=== PATIENT | male | born 1995 | race Caucasian/White ===

== ENCOUNTER 2016-05-02 18:42 | Emergency (ER) | payer OTHER ==
[2016-05-02 18:52] VITALS: RESP 16; TEMP 98.1
--- NOTE | 2016-05-02 20:05 | EDPHY ---
H & P Stated Complaint: L arm injury skiing;abrasion and contusion noted L proximal forearm HPI/ROS: CHIEF COMPLAINT: skiing injury, left forearm injury HISTORY OF PRESENT ILLNESS: skiing this afternoon when he reports coming around a corner too quickly, and striking a tree. Said he instinctively pulled his left arm up instructed treated 1st with the forearm. No head or neck injury. No loss of conscious. No chest or back pain. No injury to the right arm. No injury to the legs. The pain is mild to moderate. It is worse with palpation and weight-bearing. Superficial abrasion but no laceration. He retains full range of motion about the arm. Pain does improve with rest. No other associated complaints or modifying factors. PRIOR ORTHO INJURIES:None ESTABLISHED ORTHOPEDIST: none REVIEW OF SYSTEMS: Ten systems reviewed and are negative unless otherwise noted in the HPI EXAMINATION General Appearance: Alert, no distress Head: normocephalic, atraumatic Eyes: Pupils equal and round, no conjunctival pallor or injection ENT, Mouth: Mucous membranes moist Neck: Normal inspection Respiratory: No dyspnea or retractions. No distress Cardiovascular: Pulses normal throughout. Brisk cap refill Gastrointestinal: No distention Back: non-tender, no bony abnormalities Neurological: A&O, sensory symmetric, strength symmetric Skin: Warm and dry, no rash. Superficial abrasion over the left forearm distal to the elbow. No laceration. Mild ecchymosis Extremities: localized tenderness over the proximal ulna distal to the elbow. Range of motion is fully intact in the elbow and wrist. Neurovascular intact distal to this tenderness. There is no crepitus. No tenderness of the elbow or the radial head. No tenderness of the snuffbox or carpals and metacarpals. Psychiatric: Mood and affect normal DIFFERENTIAL DIAGNOSES: Including but not limited to Contusion, sprain, strain, fracture, dislocation, hematoma, abrasion MDM: 7:30 p.m. skiing injury with a left forearm injury against a tree. He has no head or neck injury. No complaints of pain anywhere else. The range of motion about the affected extremity is fully intact neuro and intact distally. There is a superficial abrasion hematoma to the left forearm consistent with a defense mechanism. X-ray is pending at this time. 8:15 p.m. x-ray is within normal limits. No acute findings. I have re-examined the patient. He has a small Band-Aid over the wound. The compartments remained soft with no evidence of compartment syndrome. Range of motion is fully intact. His pain is minimal. Discharged home with symptomatic medications including [id number] ibuprofen orally. Follow up with Orthopedics for definitive care. I did discuss return to the ER precautions should his swelling worsen, he develops any numbness or tingling. ED Precautions: Worsening pain. Erythema, edema, cyanosis, pallor, paresthesia or anesthesia. SUPERVISION: This patient was independently evaluated without the aide of supervising physician. Source: Patient - Personal History Current Tetanus Diphtheria and Acellular Pertussis (TDAP): Yes - Medical/Surgical History Other PMH: neg - Social History Smoking Status: Never smoked Constitutional: Initial Vital Signs Temperature (C) 98.1 F 05/02/16 18:45 Heart Rate 80 05/02/16 18:45 Respiratory Rate 16 05/02/16 18:45 Blood Pressure 150/87 H 05/02/16 18:45 O2 Sat (%) 97 05/02/16 18:45 Allergies/Adverse Reactions: No Known Allergies Allergy (Unverified 05/02/16 18:49) Home Medications: Medication Instructions Recorded NK [No Known Home Meds] 05/02/16 Departure - Departure Disposition: Home, Routine, Self-Care Clinical Impression: Contusion of forearm, left Qualifiers: Encounter type: initial encounter Qualified Code(s): S50.12XA - Contusion of left forearm, initial encounter Injury due to skiing accident Qualifiers: Encounter type: initial encounter Qualified Code(s): V00.328A - Other snow-ski accident, initial encounter Condition: Good Instructions: Arm Pain (ED) Additional Instructions: follow-up with Orthopedics for definitive care. Return to ER for worsening pain, numbness, tingling Referrals: Jessica House MD [Medical Doctor] - As per Instructions
[2016-05-02 20:34] VITALS: BP 137/79; PULSE 78; O2SAT 96
== END 2016-05-02 20:32 | disposition home or self-care (01) ==
DX: S50.12XA Contusion of left forearm, initial encounter (principal); V00.328A Other snow-ski accident, initial encounter; Y93.23 Activity, snow (alpine) (downhill) skiing, snowboarding, sledding, tobogganing and snow tubing

== ENCOUNTER 2018-08-31 19:37 | Emergency (ER) | payer OTHER | END 2018-08-31 20:21 | disposition home or self-care (01) ==